=== PATIENT | male | born 1950 | race Caucasian/White ===

== ENCOUNTER 2018-07-21 11:23 | Inpatient (IN) | payer MEDICARE, MEDICAID ==
[~2018-07-21] VITALS: Ht 175.3 cm; Wt 75.2 kg
[2018-07-21 14:39] LABS: GLUCOSE,POINT OF CARE 105 MG/DL (70-110)
[2018-07-21] MEDS ORDERED: GABA-529 PO (14:57)
[2018-07-21] MEDS ORDERED: METF-444 PO (14:57)
[2018-07-21] MEDS ORDERED: OXYC-43 PO (14:57)
[2018-07-21 15:01] LABS: BASOPHILS % (AUTO) 0.5 % (0.0-2.0); EOSINOPHILS % (AUTO) 1.2 % (1.0-6.0); HEMOGLOBIN 14.6 g/dL (13.5-17.5); LYMPHOCYTES # (AUTO) 2.3 K/uL (1.0-4.8); LYMPHOCYTES % (AUTO) 41.6 % (22.0-44.0); MEAN CORPUSCULAR HEMOGLOBIN 33.7 pg (26.0-34.0); MEAN CORPUSCULAR HGB CONC 33.9 G/dL (31.0-37.0); MEAN CORPUSCULAR VOLUME 100 fL (80-100); MONOCYTES # (AUTO) 0.5 K/uL (0.1-1.0); MONOCYTES % (AUTO) 9.9 % (2.0-9.0); NEUTROPHILS # (AUTO) 2.6 K/uL (1.8-7.7); NEUTROPHILS % (AUTO) 46.8 % (40.0-70.0); PLATELET COUNT (AUTO) 126 K/uL (150-450); RED BLOOD CELL COUNT(AUTO) 4.32 MIL/uL (4.50-5.90); RED CELL DISTRIBUTION WIDTH 12.4 % (11.5-14.5)
[2018-07-21 15:12] LABS: ANION GAP 20 mmol/L (8-16); CARBON DIOXIDE 23 mmol/L (22-29); CHLORIDE 103 mmol/L (98-107); CREATININE 0.74 mg/dL (0.60-1.30); GLOMERULAR FILTR. RATE CALC > 60 mL/min (>60); GLUCOSE,RANDOM 104 mg/dL (70-110); POTASSIUM 3.9 mmol/L (3.5-5.1); SODIUM SERUM 146 mmol/L (136-145); UREA NITROGEN, BLOOD 12 mg/dL (7-18)
[2018-07-21 15:18] LABS: ALANINE AMINOTRANSFERASE 45 U/L (12-78); ALBUMIN 4.5 g/dL (3.4-5.0); ALKALINE PHOSPHATASE 58 U/L (46-116); ASPARTATE AMINOTRANSFERASE 55 U/L (15-37); BILIRUBIN,TOTAL 0.3 mg/dL (0.1-1.0); TOTAL PROTEIN, SERUM 7.9 g/dL (6.4-8.2)
[2018-07-21] MEDS ORDERED: ACETAMINOPHEN 500 MG TABLET PO ONE (17:15)
[2018-07-21] MEDS ORDERED: ChlordiazePOXIDE HCL 25 MG CAPSULE PO ONE (17:15)
[2018-07-21 18:24] LABS: AMPHET/METH SCREEN,URINE NEGATIVE (NEGATIVE); BARBITURATE SCREEN, URINE NEGATIVE (NEGATIVE); BENZODIAZEPINES SCREEN,URINE POSITIVE (NEGATIVE); CANNABINOID SCREEN,URINE NEGATIVE (NEGATIVE); COCAINE SCREEN,URINE NEGATIVE (NEGATIVE); METHADONE SCREEN, URINE NEGATIVE (NEGATIVE); OPIATE SCREEN,URINE NEGATIVE (NEGATIVE)
[2018-07-21 18:25] LABS: PHENCYCLIDINE SCREEN,URINE NEGATIVE (NEGATIVE)
[2018-07-21] MEDS ORDERED: ZOLPIDEM TARTRATE 10 MG TABLET PO PRN (19:30)
[2018-07-21 20:38] LABS: APPEARANCE,URINE CLEAR (CLEAR); BILIRUBIN,URINE NEGATIVE (NEGATIVE); GLUCOSE, URINE (UA) NEGATIVE (NEGATIVE); KETONES,URINE NEGATIVE (NEGATIVE); LEUKOCYTE ESTERASE ,URINE NEGATIVE (NEGATIVE); NITRATE,URINE NEGATIVE (NEGATIVE); OCCULT BLOOD,URINE NEGATIVE (NEGATIVE); PROTEIN,URINE POS 1+ (NEGATIVE); UROBILINOGEN,URINE 0.2 mg/dL (<=1.0)
[2018-07-21] MEDS: LORazepam 2 MG TABLET PO SCH (21:12)
[2018-07-21 21:13] LABS: BACTERIA,URINE None Seen /HPF (None Seen); RBC,URINE None Seen /HPF (0-2); SQUAMOUS EPITHELIAL CELL,UR Rare /LPF (None Seen); WBC,URINE 0-2 /HPF (0-5)
[2018-07-22] VITALS (9 sets, daily range): BP systolic 109–137; BP diastolic 72–91
[2018-07-22] MEDS: LORazepam 2 MG TABLET PO PRN ×2 (00:47→03:10)
[2018-07-22] MEDS ORDERED: LORazepam 2 MG TABLET PO PRN (07:00)
[2018-07-22 07:08] LABS: CHOL/HDL RATIO 1.4 (4.2-7.3); CHOLESTEROL 191 mg/dL (131-200); FREE T4 (FREE THYROXINE) 0.66 ng/dL (0.76-1.46); HDL CHOLESTEROL 139 mg/dL (40-60); LDL CHOL (CALC.) 40 mg/dL (0-130); THYROID STIMULATING HORMONE 3.77 uIU/mL (0.36-3.74); TRIGLYCERIDES 59 mg/dL (15-150)
[2018-07-22] MEDS ORDERED: ACETAMINOPHEN 325 MG TABLET PO PRN (07:15)
[2018-07-22] MEDS: LORazepam 2 MG TABLET PO SCH ×2 (10:40→13:10)
[2018-07-22] MEDS ORDERED: DEXTROSE 50%-WATER 25 GM/50 ML SYRINGE IVP PRN (11:00)
[2018-07-22 11:28] LABS: GLUCOMETER DEV NAME(LOC) 3E.C; GLUCOSE,POINT OF CARE 201 MG/DL (70-110)
[2018-07-22] MEDS: INSULIN LISPRO 100 UNITS/ML SQ PRN ×2 (11:30→17:30)
[2018-07-22 11:54] LABS: ANION GAP 12 mmol/L (8-16); CALCIUM, TOTAL 8.4 mg/dL (8.8-10.5); CARBON DIOXIDE 27 mmol/L (22-29); CHLORIDE 100 mmol/L (98-107); GLOMERULAR FILTR. RATE CALC > 60 mL/min (>60); GLUCOSE,RANDOM 117 mg/dL (70-110); POTASSIUM 3.3 mmol/L (3.5-5.1); SODIUM SERUM 139 mmol/L (136-145); UREA NITROGEN, BLOOD 14 mg/dL (7-18)
[2018-07-22] MEDS ORDERED: HydrOXYzine PAMOATE 50 MG CAPSULE PO PRN (12:15)
[2018-07-22] MEDS ORDERED: CYANOCOBALAMIN 1,000 MCG/ML VIAL IM ONE (12:15)
[2018-07-22] MEDS ORDERED: GuaiFENesin/D-METHORPHAN [SUGAR-FREE] 200-20MG/10 ML SYRUP UDCUP PO PRN (12:15)
[2018-07-22] MEDS ORDERED: MAG HYDROX/AL HYDROX/SIMETH ES 30 ML SUSPENSION UDCUP PO PRN (12:15)
[2018-07-22] MEDS ORDERED: MAGNESIUM HYDROXIDE SUSPENSION 30 ML UDCUP PO PRN (12:15)
[2018-07-22] MEDS ORDERED: LOPERAMIDE HCL 2 MG CAPSULE PO PRN ×2 (12:15)
[2018-07-22] MEDS ORDERED: TUBERCULIN, PURIFIED PROTEIN DERIVATIVE 5 TU/0.1 ML SYG ID ONE (12:15)
[2018-07-22 16:23] LABS: GLUCOMETER DEV NAME(LOC) 3EX.; GLUCOSE,POINT OF CARE 155 MG/DL (70-110)
[2018-07-22] MEDS ORDERED: DIAZEPAM 10 MG TABLET PO PRN (16:45)
[2018-07-22] MEDS: THIAMINE HCL 100 MG TABLET PO SCH (17:44)
[2018-07-22] MEDS: GABAPENTIN 300 MG CAPSULE PO SCH ×2 (17:44→21:11)
[2018-07-22] MEDS: QUEtiapine FUMARATE 100 MG TABLET PO PRN (18:03)
[2018-07-22] MEDS ORDERED: MIRTAZAPINE 15 MG TABLET PO SCH (21:00)
[2018-07-23 00:08] VITALS: BP 139/85
[2018-07-23 04:00] VITALS: BP 110/75
[2018-07-23 05:39] LABS: GLUCOMETER DEV NAME(LOC) 3EX.; GLUCOSE,POINT OF CARE 136 MG/DL (70-110)
[2018-07-23] MEDS: QUEtiapine FUMARATE 100 MG TABLET PO PRN ×2 (06:25→13:05)
[2018-07-23 06:32] LABS: FREE T4 (FREE THYROXINE) 0.69 ng/dL (0.76-1.46); THYROID STIMULATING HORMONE 3.84 uIU/mL (0.36-3.74)
[2018-07-23] MEDS ORDERED: DIAZEPAM 10 MG TABLET PO PRN (07:00)
[2018-07-23] MEDS: DULoxetine HCL 20 MG CAPSULE PO SCH (07:54)
[2018-07-23] MEDS: FOLIC ACID 1 MG TABLET PO SCH (07:54)
[2018-07-23] MEDS: THIAMINE HCL 100 MG TABLET PO SCH ×2 (07:54→16:57)
[2018-07-23] MEDS: NALTREXONE HCL 50 MG TABLET PO SCH (07:54)
[2018-07-23] MEDS: DIAZEPAM 10 MG TABLET PO SCH ×5 (07:56→21:04)
[2018-07-23] MEDS: MULTIVITAMINS WITH MINERALS, THERAPEUTIC TABLET PO SCH (07:56)
[2018-07-23] MEDS: GABAPENTIN 300 MG CAPSULE PO SCH ×2 (07:57→12:14)
[2018-07-23 08:00] VITALS: BP 143/79
[2018-07-23 12:00] VITALS: BP 133/79
[2018-07-23] MEDS: GABAPENTIN 400 MG CAPSULE PO SCH ×3 (13:00→21:04)
[2018-07-23] MEDS ORDERED: ACAM333T7 PO (13:03)
[2018-07-23] MEDS ORDERED: DULO20CA30 PO (13:03)
[2018-07-23] MEDS ORDERED: GABA-533 PO (13:03)
[2018-07-23] MEDS ORDERED: NALT50TA PO (13:03)
[2018-07-23] MEDS: ACAMPROSATE CALCIUM 333 MG DR TABLET PO SCH ×2 (14:15→17:34)
[2018-07-23 16:00] VITALS: BP 111/68
[2018-07-23 16:44] LABS: GLUCOMETER DEV NAME(LOC) 3EX.; GLUCOSE,POINT OF CARE 112 MG/DL (70-110)
[2018-07-23] MEDS: MetFORMIN HCL 500 MG TABLET PO SCH (17:35)
[2018-07-23 20:03] VITALS: BP 122/67
[2018-07-24 05:29] LABS: GLUCOMETER DEV NAME(LOC) 3EX.; GLUCOSE,POINT OF CARE 147 MG/DL (70-110)
[2018-07-24] MEDS: QUEtiapine FUMARATE 100 MG TABLET PO PRN (05:41)
[2018-07-24 05:46] VITALS: BP 117/82
[2018-07-24] MEDS ORDERED: LEVOTHYROXINE SODIUM 50 MCG TABLET PO SCH (07:00)
[2018-07-24] MEDS ORDERED: LORazepam 1 MG TABLET PO PRN (07:00)
[2018-07-24] MEDS: INSULIN LISPRO 100 UNITS/ML SQ PRN (07:14)
[2018-07-24] MEDS: MetFORMIN HCL 500 MG TABLET PO SCH (07:14)
[2018-07-24] MEDS: FOLIC ACID 1 MG TABLET PO SCH (08:42)
[2018-07-24] MEDS: DIAZEPAM 10 MG TABLET PO SCH ×2 (08:42→13:00)
[2018-07-24] MEDS: THIAMINE HCL 100 MG TABLET PO SCH (08:42)
[2018-07-24] MEDS: MULTIVITAMINS WITH MINERALS, THERAPEUTIC TABLET PO SCH (08:42)
[2018-07-24] MEDS: GABAPENTIN 400 MG CAPSULE PO SCH ×2 (08:42→13:00)
[2018-07-24] MEDS: NALTREXONE HCL 50 MG TABLET PO SCH (08:42)
[2018-07-24] MEDS: DULoxetine HCL 20 MG CAPSULE PO SCH (08:42)
[2018-07-24] MEDS: ACAMPROSATE CALCIUM 333 MG DR TABLET PO SCH ×2 (08:43→13:00)
[2018-07-24] MEDS ORDERED: LORazepam 1 MG TABLET PO SCH (09:00)
[2018-07-24] MEDS ORDERED: LEVO50TA11 PO (09:31)
[2018-07-24 11:05] VITALS: BP 120/80
[2018-07-25] MEDS ORDERED: LORazepam 1 MG TABLET PO PRN (07:00)
[2018-07-25] MEDS ORDERED: DIAZEPAM 5 MG TABLET PO PRN (07:00)
[2018-07-25] MEDS ORDERED: DIAZEPAM 5 MG TABLET PO SCH (09:00)
[2018-07-26] MEDS ORDERED: DIAZEPAM 5 MG TABLET PO PRN (07:00)
== END 2018-07-24 11:20 | disposition home or self-care (01) | DRG 885 ==
LOC: EMS 11:23 → 3EX 23:32
PROVIDERS: ADMIT Psychiatry & Neurology Psychiatry; ATTEND Psychiatry & Neurology Psychiatry
DX: F33.9 Major depressive disorder, recurrent, unspecified (principal); R45.851 Suicidal ideations; E03.9 Hypothyroidism, unspecified; E11.9 Type 2 diabetes mellitus without complications; F10.229 Alcohol dependence with intoxication, unspecified; F17.200 Nicotine dependence, unspecified, uncomplicated; F41.9 Anxiety disorder, unspecified; G89.29 Other chronic pain; N40.0 Benign prostatic hyperplasia without lower urinary tract symptoms; Y90.8 Blood alcohol level of 240 mg/100 ml or more
CPT/HCPCS: 84439; 84443; G0378; G0480; J3420

== ENCOUNTER 2020-01-09 23:36 | Emergency (ER) | payer OTHER ==
[~2020-01-09] VITALS: Ht 175.3 cm; Wt 75.0 kg
[~2020-01-09 23:36] MED LIST: ACAM333T7 PO; DULO20CA27 PO; GABA-533 PO; LEVO50TA11 PO; METF-444 PO
[2020-01-10] MEDS ORDERED: THIAMINE 100 MG/ML 2 ML VIAL IVP ONE
[2020-01-10] MEDS ORDERED: FOLIC ACID 5 MG/ML 10 ML VIAL IVP ONE
[2020-01-10 00:25] LABS: GLUCOSE,POINT OF CARE 161 MG/DL (70-110)
[2020-01-10 00:34] LABS: BASOPHILS % (AUTO) 0.9 % (0.0-2.0); EOSINOPHILS % (AUTO) 1.1 % (1.0-6.0); HEMATOCRIT 35.7 % (41-53); LYMPHOCYTES # (AUTO) 1.8 K/uL (1.0-4.8); LYMPHOCYTES % (AUTO) 31.3 % (22.0-44.0); MEAN CORPUSCULAR HEMOGLOBIN 34.3 pg (26.0-34.0); MEAN CORPUSCULAR HGB CONC 33.6 G/dL (31.0-37.0); MEAN CORPUSCULAR VOLUME 102 fL (80-100); MONOCYTES # (AUTO) 0.8 K/uL (0.1-1.0); MONOCYTES % (AUTO) 13.5 % (2.0-9.0); NEUTROPHILS # (AUTO) 3.1 K/uL (1.8-7.7); NEUTROPHILS % (AUTO) 53.2 % (40.0-70.0); PLATELET COUNT (AUTO) 201 K/uL (150-450); RED CELL DISTRIBUTION WIDTH 14.1 % (11.5-14.5)
[2020-01-10 00:48] LABS: AMPHET/METH SCREEN,URINE NEGATIVE (NEGATIVE); BARBITURATE SCREEN, URINE NEGATIVE (NEGATIVE); BENZODIAZEPINES SCREEN,URINE POSITIVE (NEGATIVE); CANNABINOID SCREEN,URINE NEGATIVE (NEGATIVE); COCAINE SCREEN,URINE NEGATIVE (NEGATIVE); METHADONE SCREEN, URINE NEGATIVE (NEGATIVE); OPIATE SCREEN,URINE NEGATIVE (NEGATIVE)
[2020-01-10 00:50] LABS: ALANINE AMINOTRANSFERASE 33 U/L (12-78); ALBUMIN 3.5 g/dL (3.4-5.0); ALKALINE PHOSPHATASE 55 U/L (46-116); ANION GAP 13 mmol/L (8-16); ASPARTATE AMINOTRANSFERASE 55 U/L (15-37); BILIRUBIN,TOTAL 0.2 mg/dL (0.1-1.0); CALCIUM, TOTAL 8.6 mg/dL (8.8-10.5); CARBON DIOXIDE 26 mmol/L (22-29); CHLORIDE 105 mmol/L (98-107); GLOMERULAR FILTR. RATE CALC > 60 mL/min (>60); GLUCOSE,RANDOM 175 mg/dL (70-110); SODIUM SERUM 144 mmol/L (136-145); TOTAL PROTEIN, SERUM 6.6 g/dL (6.4-8.2); UREA NITROGEN, BLOOD 6 mg/dL (7-18)
[2020-01-10 00:55] LABS: PHENCYCLIDINE SCREEN,URINE NEGATIVE (NEGATIVE)
[2020-01-10 01:09] LABS: POTASSIUM 3.1 mmol/L (3.5-5.1)
[2020-01-10] MEDS ORDERED: FOLIC ACID 5 MG/ML 10 ML VIAL IM ONE ×2 (01:45)
[2020-01-10] MEDS ORDERED: THIAMINE 100 MG/ML 2 ML VIAL IM ONE ×2 (01:45)
[2020-01-10 07:00] VITALS: BP 129/68
== END 2020-01-10 10:07 | disposition home or self-care (01) ==
LOC: EMS 23:36
DX: F10.129 Alcohol abuse with intoxication, unspecified (principal); R47.81 Slurred speech; F17.210 Nicotine dependence, cigarettes, uncomplicated; Z79.84 Long term (current) use of oral hypoglycemic drugs; Y90.8 Blood alcohol level of 240 mg/100 ml or more
CPT/HCPCS: 36415; 70450; 72125; 80053; 80307; 82962; 85025; 93005; 96372; 99285; G0480; J3411; J3490